=== PATIENT | male | born 1985 | race Caucasian/White ===

== ENCOUNTER → 2020-01-30 16:56 | Outpatient (CLI) | payer OTHER, SELFPAY ==
[2020-02-02 00:15] LABS: COVID19 Sendout Not Detected (Not Detected)
== END ==
PROVIDERS: PCP Family Medicine; Visit Provider Physician Assistant
DX: J02.9 Acute pharyngitis, unspecified (principal)
CPT/HCPCS: 87635

== ENCOUNTER → 2020-11-14 08:32 | Outpatient (CLI) | payer OTHER, SELFPAY ==
[2020-11-14] MEDS: COVID-19 VACC #2, MRNA(MOD) 100 MCG/0.5 ML VIAL IM (08:43)
== END ==
PROVIDERS: PCP Family Medicine; Visit Provider Internal Medicine
DX: Z23 Encounter for immunization (principal)
CPT/HCPCS: 0012A; 91301

== ENCOUNTER → 2022-01-12 13:34 | Outpatient (CLI) | payer OTHER, SELFPAY ==
[2022-01-12 13:48] LABS: Semen Sperm Prescence Post-Vas Absent (ABSENT)
== END ==
PROVIDERS: PCP Family Medicine; Referring Provider Family Medicine; Visit Provider Family Medicine
DX: Z98.52 Vasectomy status (principal)
CPT/HCPCS: 89321

== ENCOUNTER → 2022-07-21 09:11 | Outpatient (CLI) | payer OTHER, SELFPAY ==
--- NOTE | 2022-07-21 | DI.MRI.S_ITS ---
PROCEDURE: MR CERVICAL SPINE WO CON INDICATIONS: CERVICAL RADICULOPATHY TECHNIQUE: Noncontrast sagittal T1 spin echo and T2 fast spin echo, sagittal STIR, foraminal oblique sagittal T2 fast spin echo, and axial gradient echo or T2 fast spin echo through the cervical spine. COMPARISON: None. FINDINGS: Image quality: Excellent. Alignment and Curvature: Normal cervical spine vertebral body alignment and height. Bone Marrow: No suspicious focal marrow signal abnormality or bone marrow edema. Spinal Cord: Normal morphology and signal intensity of the cervical cord. Regional Soft Tissues: No paraspinous soft tissue mass. Prevertebral soft tissue thickness is normal. C2-C3: No spinal canal or neural foraminal narrowing. C3-C4: Facet and uncovertebral hypertrophy combine to produce trace neural foraminal narrowing. No spinal canal stenosis. C4-C5: No spinal canal or neural foraminal stenosis. C5-C6: Trace posterior disc osteophyte complex without mass effect upon the cord or spinal canal stenosis. Facet and uncovertebral hypertrophy combine to produce minimal neural foraminal narrowing on the left. C6-C7: No spinal canal or neural foraminal stenosis. C7-T1: No spinal canal or neural foraminal stenosis. IMPRESSION: Trace degenerative changes. No spinal canal or neural foraminal stenosis. Dictated by: Jamshid Ziegler M.D. on 07/21/2022 at 10:41 Approved by: Jamshid Ziegler M.D. on 07/21/2022 at 10:43
== END ==
PROVIDERS: PCP Family Medicine; Referring Provider Orthopaedic Surgery; Visit Provider Orthopaedic Surgery
DX: M54.12 Radiculopathy, cervical region (principal)
CPT/HCPCS: 72141

== ENCOUNTER → 2022-08-18 18:31 | Outpatient (CLI) | payer OTHER, SELFPAY ==
[2022-08-18 20:29] LABS: Influenza A - CEPHEID Flu A NEGATIVE (NEGATIVE); Influenza B - CEPHEID Flu B NEGATIVE (NEGATIVE); Respiratory Syncytial Virus Negative (Negative)
[2022-08-18 20:32] LABS: COVID-19 CEPHEID 4-PLEX PCR Negative (Negative)
== END ==
PROVIDERS: PCP Family Medicine; Visit Provider Physician Assistant
DX: J02.9 Acute pharyngitis, unspecified (principal); J06.9 Acute upper respiratory infection, unspecified; Z20.822 Contact with and (suspected) exposure to COVID-19
CPT/HCPCS: 0241U; 87070

== ENCOUNTER → 2022-10-12 12:20 | Outpatient (CLI) | payer OTHER, SELFPAY ==
--- NOTE | 2022-10-12 | DI.MRI.S_ITS ---
PROCEDURE: MR SHOULDER LT WO CON INDICATIONS: Pain in left shoulder TECHNIQUE: Noncontrast oblique coronal T2 fast spin echo with fat saturation, oblique sagittal T1 spin echo and T2 fast spin echo with fat saturation, axial T1 spin echo and T2 fast spin echo with fat saturation through the shoulder. COMPARISON: None. FINDINGS: Image quality: Excellent. Rotator cuff: Mild supraspinatus and infraspinatus tendinosis. The teres minor and subscapularis tendons are intact. No significant rotator cuff muscle atrophy is seen. Bones and bursae: No acute trabecular bone injury or fracture. No focal glenohumeral cartilage defect. Mild degenerative changes are seen at the acromioclavicular joint. There is a small amount of fluid in the subacromial/subdeltoid bursa. No significant glenohumeral effusion. Capsule and soft tissues: Chronic nondisplaced tearing of the posterosuperior labrum is seen. The proximal biceps long head tendon is intact. There is mild thickening and increased signal intensity within the anterior band of the inferior glenohumeral ligament. Partial effacement of the normal fat signal in the rotator interval is seen. IMPRESSION: 1. Mild supraspinatus and infraspinatus tendinosis. No significant rotator cuff tendon tear. 2. Chronic nondisplaced tearing of the posterosuperior labrum. No acute displaced labral tear. 3. Small subacromial/subdeltoid bursal effusion or bursitis. 4. Partial effacement of the rotator interval fat and mild thickening and increased signal intensity within the inferior glenohumeral ligament are nonspecific, but can be seen in the setting of the clinical syndrome of adhesive capsulitis. Dictated by: Josh Palm M.D. on 10/12/2022 at 15:12 Approved by: Josh Palm M.D. on 10/12/2022 at 15:23
== END ==
PROVIDERS: PCP Family Medicine; Referring Provider Orthopaedic Surgery; Visit Provider Orthopaedic Surgery
DX: S43.492A Other sprain of left shoulder joint, initial encounter (principal); M25.512 Pain in left shoulder
CPT/HCPCS: 73221

== ENCOUNTER → 2023-01-07 16:15 | Outpatient (CLI) | payer OTHER, SELFPAY ==
--- NOTE | 2023-01-07 16:15 | DI.ECHO.S_ITS ---
[facility] +---------+ : : [address] [place] : : : : [id number] : : : : Phone: [phone]---------+ Echocardiogram Report + + :Name: CRISTINA ETIENNE Study Date: 01/07/2023 Height: 69 in : :[facility] ReadingLocation: Weight: 160 lb : : Gender: Male BSA: 1.9 m2 : :: 1985 Age: 37 yrs BP: 120/82 mmHg: :Reason For Study: Unspecified Right Bundle-Branch Block : :Ordering Physician: PAWEL STEEL Performed By: Phyllis Torres : :Referring: PAWEL STEEL : + + Interpretation Summary Normal both left and right ventricle size and function. The ejection fraction is 55-60%. No valvular abnormality. Procedure: A two-dimensional transthoracic echocardiogram with color flow and Doppler was performed. The study quality was technically good. There is no prior echocardiogram noted for this patient. The patient was in normal sinus rhythm during the exam. Left Ventricle: The left ventricle is normal in size. There is normal left ventricular wall thickness. The ejection fraction is estimated to be 55-60%. There are no focal wall motion abnormalities. Diastolic parameters suggest probable normal left ventricular diastolic function and normal filling pressures. Right Ventricle: The right ventricle is normal in size and function. Atria: The left atrial size is normal. Right atrial size is normal. There is no Doppler evidence for an interatrial shunt. Mitral Valve: The mitral valve is normal. There is no mitral valve stenosis. There is trace mitral regurgitation. Aortic Valve: The aortic valve is trileaflet. The aortic valve opens well. There is no aortic valve stenosis. No aortic regurgitation is present. Tricuspid Valve: The tricuspid valve is normal. There is no tricuspid stenosis. There is trace tricuspid regurgitation. Pulmonic Valve: The pulmonic valve leaflets are thin and pliable; valve motion is normal. There is no pulmonic valvular stenosis. There is trace pulmonic regurgitation. Great Vessels: The aortic root is normal size. The ascending aorta is normal in size. The pulmonary artery is normal size. The IVC is of normal diameter and collapses greater than 50% with a sniff. This suggests a low right atrial pressure of 3 mm Hg. Pericardium/ Pleura There is no pericardial effusion. There is no pleural effusion. MMode/2D Measurements & Calculations LVIDd: 5.6 cm LVOT diam: 2.0 cm LVIDs: 3.9 cm Ao root diam: 2.8 cm FS: 30.4 % asc Aorta Diam: 2.9 cm IVSd: 0.80 cm LVPWd: 0.80 cm LV tena. diameter/BSA (cm/m^2): 3.0 LV sys. diameter/BSA (cm/m^2): 2.1 LA A2 area: 15.0 cm2 RA long axis: 4.5 cm LA A4 area: 16.4 cm2 RA area: 13.4 cm2 LA length (vol): 5.1 cm RA vol: 33.6 ml LA vol: 40.9 ml RA : 17.9 ml/m2 LA vol index: 21.8 ml/m2 RVD1 (basal): 3.8 cm LVLs ap4: 6.1 cm LVLd ap2: 7.0 cm TAPSE_phl: 2.4 cm LVLs ap2: 6.1 cm Doppler Measurements & Calculations Ao V2 max: 128.0 cm/sec LVOT Max Stephen: 108.0 cm/sec Ao V2 mean: 95.3 cm/sec LV V1 max P.7 mmHg Ao max P.0 mmHg LV V1 VTI: 21.1 cm Ao mean P.0 mmHg ELIZABETH(I,D): 2.3 cm2 Ao V2 VTI: 28.7 cm ELIZABETH(V,D): 2.7 cm2 sev ratio: 0.74 ELIZABETH indexed to BSA (cm^2/m^2): 1.2 MV E max stephen: 83.1 cm/sec PA V2 max: 103.0 cm/sec MV A max stephen: 52.3 cm/sec PA V2 mean: 72.5 cm/sec MV E/A: 1.6 PA mean P.0 mmHg Med Peak E' Stephen: 11.8 cm/sec PA pr(Accel): 6.5 mmHg E/E' med: 7.0 Lat Peak E' Stephen: 17.3 cm/sec E/E' lat: 4.8 E/e' average: 5.9 MV dec time: 0.24 sec SV(LVOT): 66.3 ml AV VR_phl: 0.84 ELIZABETH(VTI)/BSA_phl: 1.2 MV P1/2t-pr_phl: 70.0 msec Electronically signed by: Miguel Arriaza on [place] Physician:01/07/2023 08:32 PM
== END ==
PROVIDERS: PCP Family Medicine; Referring Provider Family Medicine; Visit Provider Family Medicine
DX: I45.10 Unspecified right bundle-branch block (principal)
CPT/HCPCS: 93306

== ENCOUNTER → 2024-12-11 10:25 | Outpatient (CLI) | payer OTHER, SELFPAY ==
--- NOTE | 2024-12-11 10:26 | DI.RAD.S_ITS ---
PROCEDURE: XR ANKLE LT MIN 3V INDICATIONS: left ankle strain TECHNIQUE: 3 views of the ankle were acquired. COMPARISON: None. FINDINGS: Bones: There are no osseous abnormalities. Tibiotalar and talocalcaneal joints: Ankle is normal in width and alignment. Large effusion noted. Talocalcaneal joint is normal. Soft tissues: Mild diffuse soft swelling. IMPRESSION: Large ankle effusion. In the posttraumatic setting, this would increase risk for occult fracture. Consider immobilization repeat ankle series in 10 days if there is significant persistent pain Dictated by: Ochoa Ball M.D. on 12/12/2024 at 11:44 Approved by: Ochoa Ball M.D. on 12/12/2024 at 11:45
== END ==
PROVIDERS: PCP Family Medicine; Referring Provider Nurse Practitioner Family; Visit Provider Nurse Practitioner Family
DX: S96.912A Strain of unspecified muscle and tendon at ankle and foot level, left foot, initial encounter (principal); M25.472 Effusion, left ankle; M79.89 Other specified soft tissue disorders; X58.XXXA Exposure to other specified factors, initial encounter
CPT/HCPCS: 73610

== ENCOUNTER → 2025-01-06 15:41 | Outpatient (CLI) | payer OTHER, SELFPAY ==
[2025-01-06 16:23] LABS: Influenza A - CEPHEID Flu A NEGATIVE (NEGATIVE); Influenza B - CEPHEID Flu B NEGATIVE (NEGATIVE)
[2025-01-06 16:25] LABS: COVID-19 CEPHEID 4-PLEX PCR POSITIVE (Negative)
== END ==
PROVIDERS: PCP Family Medicine; Visit Provider Chiropractor
DX: R05.1 Acute cough (principal)
CPT/HCPCS: 87637

== ENCOUNTER → 2025-04-23 08:15 | Outpatient (CLI) | payer OTHER, SELFPAY ==
--- NOTE | 2025-04-23 08:16 | DI.MRI.S_ITS ---
PROCEDURE: MR ANKLE LT WO CON INDICATIONS: Left ankle instability and pain TECHNIQUE: Noncontrast sagittal T1 spin echo and T2 fast spin echo with fat saturation, axial proton density fast spin echo and T2 fast spin echo with fat saturation, coronal T1 spin echo and T2 fast spin echo with fat saturation through the ankle/hindfoot. COMPARISON: None. FINDINGS: Image quality: Excellent Tendons: Mild tenosynovitis of the posterior tibialis. The flexor digitorum longus, and the flexor hallucis longus are unremarkable. The extensor tendons are unremarkable. Longitudinal split tear of the peroneal brevis, below the lateral malleolus. Mild tenosynovitis of the peroneal longus, without tear. The distal Achilles tendon is unremarkable. Ligaments: The anterior and the posterior tibiofibular ligaments are intact. The anterior talofibular ligament is not well visualized, concerning for full- thickness tear. The calcaneofibular ligament is intact. The deep portion deltoid ligament is unremarkable. Sinus tarsi: No fibrosis Plantar fascia: Unremarkable Muscle: Normal in signal Bones: Small area heterogeneous T2 hyperintensity with susceptibility artifact in the lateral tibial plafond, nonspecific and may be postprocedural. Mild degenerative changes of the tibiotalar joint with mild subchondral marrow edema in the tibial plafond. No acute fracture. Small tibiotalar effusion. IMPRESSION: 1. Longitudinal split tear of the peroneal brevis. 2. Full-thickness tear of the anterior talofibular ligament. 3. Mild degenerative change of the tibiotalar joint. Small area of heterogeneous T2 hyperintensity with susceptibility artifact in the lateral tibial plafond, nonspecific and may be postprocedural. Dictated by: Tosha Martin M.D. on 04/23/2025 at 10:42 Approved by: Tosha Martin M.D. on 04/23/2025 at 10:53
== END ==
LOC: MRI 08:15
PROVIDERS: PCP Family Medicine; Referring Provider Family Medicine; Visit Provider Orthopaedic Surgery
DX: S93.492A Sprain of other ligament of left ankle, initial encounter (principal); S86.312A Strain of muscle(s) and tendon(s) of peroneal muscle group at lower leg level, left leg, initial encounter; M25.472 Effusion, left ankle; M25.372 Other instability, left ankle; M25.572 Pain in left ankle and joints of left foot; G89.29 Other chronic pain
CPT/HCPCS: 73721